=== PATIENT | female | born 1975 | race Caucasian/White ===

== ENCOUNTER 2016-12-04 00:23 | Emergency (ER) | payer SELFPAY ==
[2016-12-04 00:39] VITALS: TEMP 97.9; O2SAT 99
--- NOTE | 2016-12-04 01:07 | ED PDOC ---
Arrival/HPI - General Historian: Patient - General Chief Complaint: Abdominal Pain Time Seen by Provider: 12/04/16 00:35 - History of Present Illness Narrative History of Present Illness (Text): 12/04/16 02:21 41 year old female presenting with 2 day hx of abdominal pain and yellow/green discharge. Patient states she has been experiencing lower quadrant pain b/l for 2 days. The pain is intermittent and sharp in nature. The pain is worse with movement. She attempted to take Tylenol for the pain but it did not help. She states she was having a white discharge from her vagina for approximately one month, but two days ago it switched to a yellowish-green discharge. Patient states the discharge has a foul odor to it. Denies f/c, n/v, d/c, sob, cp, dizziness, lightheadedness or urinary symptoms. (Elsa,Sal) Past Medical History - Provider Review Nursing Documentation Reviewed: Yes - Psychiatric Hx Substance Use: No Family/Social History - Physician Review Nursing Documentation Reviewed: Yes Family/Social History: Unknown Family HX Smoking Status: Never Smoked Hx Alcohol Use: No Hx Substance Use: No Allergies/Home Meds Allergies/Adverse Reactions: Allergies No Known Allergies Allergy (Verified 12/04/16 00:35) Review of Systems - Physician Review All systems were reviewed & negative as marked: Yes - Review of Systems Constitutional: Normal Eyes: Normal. absent: Vision Changes, Photophobia ENT: Normal. absent: Sore Throat, Rhinorrhea, Epistaxis, Sinus Congestion Respiratory: Normal. absent: SOB, Cough, Wheezing Cardiovascular: Normal. absent: Chest Pain, Palpitations, Edema, Calf Pain Gastrointestinal: Abdominal Pain. absent: Diarrhea, Nausea, Vomiting, Appetite Changes Genitourinary Female: Vaginal Discharge (green, foul smelling discharge). absent: Dysuria, Frequency Musculoskeletal: Back Pain (low back pain radiating to sides b/l) Skin: absent: Rash, Pruritis, Skin Lesions Neurological: absent: Headache, Dizziness Endocrine: Normal. absent: Diaphoresis Hemo/Lymphatic: Normal Psychiatric: Normal. absent: Depression Physical Exam Vital Signs Reviewed: Yes Temperature: Afebrile Blood Pressure: Normal Pulse: Regular Respiratory Rate: Normal Appearance: Positive for: Well-Appearing, Non-Toxic, Comfortable Pain Distress: None Mental Status: Positive for: Alert and Oriented X 3 - Systems Exam Head: Present: Atraumatic, Normocephalic Extroacular Muscles: Present: EOMI Conjunctiva: Present: Normal Mouth: Present: Moist Mucous Membranes Pharnyx: Present: Normal Nose (External): Present: Atraumatic. No: Abrasion Nose (Internal): Present: Normal Inspection Neck: Present: Normal Range of Motion. No: Meningeal Signs, JVD Respiratory/Chest: Present: Clear to Auscultation, Good Air Exchange. No: Respiratory Distress, Accessory Muscle Use Cardiovascular: Present: Regular Rate and Rhythm, Normal S1, S2 Abdomen: Present: Tenderness, Normal Bowel Sounds. No: Distention, Peritoneal Signs, Rebound, McBurney's Point Tender, Rovsing's Sign Present Genitourinary/Pelvic Exam: Present: Vaginal Discharge (yellow/green discharge), Cervical Motion Tendernes, Cervical os Closed, Odor (foul smelling) Upper Extremity: Present: Normal Inspection, NORMAL PULSES. No: Edema Lower Extremity: Present: Normal Inspection, NORMAL PULSES. No: Edema Neurological: Present: GCS=15 Skin: Present: Warm, Dry, Normal Color. No: Diaphoretic Psychiatric: Present: Alert, Oriented x 3, Normal Insight, Normal Concentration Vital Signs Temp Pulse Resp BP Pulse Ox 12/04/16 02:44 68 17 125/80 99 12/04/16 00:23 97.9 F 71 16 124/79 99 Medical Decision Making ED Course and Treatment: Impression: Pt seen and evaluated with medical management specialist. Pt presented for intermittent abdominal pain for 2 days and yellow/greenish vaginal discharge for 1 month. Aware and agrees with HPI, clinincal findings, plan, and management. Plan: -- Urinalysis -- Rocephin -- Zithromax -- Reassess and disposition (Tony Hugo) 12/04/16 02:55 Pelvic pain - Trichomoniasis - Pelvic Exam -yellow/green discharge, foul odor. Cervical motion tenderness. - UA - wnl DISPO: Home. Prescription for Flagyl 375mg q12h x 7 days. Patient given referral to [facility] for follow-up. Please return to ED with new or worsening symptoms (Sal Hunter) - Lab Interpretations Lab Results: Lab Results 12/04/16 01:05: Urine Color Yellow, Urine Appearance Clear, Urine pH 8.0, Ur Specific [place] 1.010, Urine Protein Negative, Urine Glucose (UA) Negative, Urine Ketones Negative, Urine Blood Negative, Urine Nitrate Negative, Urine Bilirubin Negative, Urine Urobilinogen 0.2, Ur Leukocyte Esterase Negative - Medication Orders Current Medication Orders: Discontinued Medications Azithromycin (Zithromax) 1,000 mg PO STAT STA PRN Reason: Protocol Stop: 12/04/16 02:13 Last Admin: 12/04/16 02:40 Dose: 1,000 mg Ceftriaxone Sodium (Rocephin) 250 mg IM STAT STA PRN Reason: Protocol Stop: 12/04/16 02:12 Last Admin: 12/04/16 02:39 Dose: 250 mg Disposition/Present on Arrival - Present on Arrival Any Indicators Present on Arrival: No History of DVT/PE: No History of Uncontrolled Diabetes: No Urinary Catheter: No History of Decub. Ulcer: No History Surgical Site Infection Following: None - Disposition Have Diagnosis and Disposition been Completed?: Yes Disposition Time: 02:00 Patient Plan: Discharge - Disposition Diagnosis: Trichomoniasis of vagina Disposition: HOME/ ROUTINE Condition: GOOD Discharge Instructions (ExitCare): Trichomoniasis (ED) Prescriptions: Metronidazole [Flagyl 375] 375 mg PO Q12H #14 cap Referrals: [facility] [place] - Follow up with primary Forms: [employer] (Armenian)
[2016-12-04 01:37] LABS: URINE BILIRUBIN NEGATIVE (NEGATIVE); URINE BLOOD NEGATIVE (NEGATIVE); URINE GLUCOSE (UA) NEGATIVE (NEGATIVE); URINE KETONE NEGATIVE (NEGATIVE); URINE LEUKOCYTE ESTERASE NEGATIVE Leu/uL (NEGATIVE); URINE PROTEIN NEGATIVE mg/dL (<30 mg/dL); URINE UROBILINOGEN 0.2 E.U./dL (<1 E.U./dL)
[2016-12-04 01:39] LABS: URINE APPEARANCE CLEAR (CLEAR); URINE COLOR YELLOW (YELLOW)
[2016-12-04] MEDS ORDERED: cefTRIAXone (Rocephin) 250 mg Inj IM STA (02:11)
[2016-12-04 02:45] VITALS: BP 125/80; PULSE 68; RESP 17
== END 2016-12-04 02:45 | disposition home or self-care (01) ==
LOC: ED 00:23
DX: A59.01 Trichomonal vulvovaginitis (principal)
CPT/HCPCS: 81003; 96372; 99284; J0696

== ENCOUNTER 2017-05-24 02:25 | Emergency (ER) | payer MEDICAID ==
[2017-05-24 02:36] VITALS: BMI 27.3
[2017-05-24 02:38] VITALS: BP 101/56; RESP 20; TEMP 98; O2SAT 98
[2017-05-24 02:41] VITALS: PULSE 70
--- NOTE | 2017-05-24 03:03 | ED PDOC ---
Arrival/HPI - General Chief Complaint: Cough, Cold, Congestion Time Seen by Provider: 05/24/17 03:00 Historian: Patient - History of Present Illness Narrative History of Present Illness (Text): 05/24/17 03:02 Jammie Thomason is a 41 year old female, with no significant past medical history , who presents to the Emergency department complaining of productive cough with greenish sputum for 4 days. Patient denies any fever, chills, chest pain, shortness of breath, nausea, vomiting, diarrhea, urinary symptoms, back pain, neck pain, headache, dizziness, or any other complaints. Time/Duration: < week Symptom Onset: Gradual Symptom Course: Unchanged Activities at Onset: Light Context: Home Past Medical History - Provider Review Nursing Documentation Reviewed: Yes - Cardiac Hx Cardiac Disorders: No - Pulmonary Hx Respiratory Disorders: No - Neurological Hx Neurological Disorder: No - HEENT Hx HEENT Disorder: No - Renal Hx Renal Disorder: No - Endocrine/Metabolic Hx Endocrine Disorders: No - Hematological/Oncological Hx Blood Disorders: No - Integumentary Hx Dermatological Disorder: No - Musculoskeletal/Rheumatological Hx Musculoskeletal Disorders: No - Gastrointestinal Hx Gastrointestinal Disorders: No - Genitourinary/Gynecological Hx Genitourinary Disorders: No - Psychiatric Hx Psychophysiologic Disorder: No Hx Substance Use: No Family/Social History - Physician Review Nursing Documentation Reviewed: Yes Family/Social History: Unknown Family HX Smoking Status: Never Smoked Hx Alcohol Use: No Hx Substance Use: No Allergies/Home Meds Allergies/Adverse Reactions: Allergies morphine Allergy (Verified 05/24/17 02:36) DIZZINESS Review of Systems - Physician Review All systems were reviewed & negative as marked: Yes - Review of Systems Constitutional: Normal. absent: Fevers Eyes: Normal ENT: Normal Respiratory: Cough, Sputum. absent: SOB Cardiovascular: Normal. absent: Chest Pain Gastrointestinal: Normal. absent: Abdominal Pain, Diarrhea, Nausea, Vomiting Genitourinary Female: Normal Musculoskeletal: Normal Skin: Normal Neurological: Normal Endocrine: Normal Hemo/Lymphatic: Normal Psychiatric: Normal Physical Exam Vital Signs Reviewed: Yes Vital Signs Temp Pulse Resp BP Pulse Ox 05/24/17 02:38 98.0 F 70 20 101/56 L 98 05/24/17 02:37 98.0 F 76 20 101/56 L 98 Temperature: Afebrile Blood Pressure: Normal Pulse: Regular Respiratory Rate: Normal Appearance: Positive for: Well-Appearing, Non-Toxic, Comfortable Pain Distress: None Mental Status: Positive for: Alert and Oriented X 3 - Systems Exam Head: Present: Atraumatic, Normocephalic Pupils: Present: PERRL Extroacular Muscles: Present: EOMI Conjunctiva: Present: Normal Mouth: Present: Moist Mucous Membranes Neck: Present: Normal Range of Motion Respiratory/Chest: Present: Clear to Auscultation, Good Air Exchange. No: Respiratory Distress, Accessory Muscle Use Cardiovascular: Present: Regular Rate and Rhythm, Normal S1, S2. No: Murmurs Abdomen: Present: Normal Bowel Sounds. No: Tenderness, Distention, Peritoneal Signs Back: Present: Normal Inspection Upper Extremity: Present: Normal Inspection. No: Cyanosis, Edema Lower Extremity: Present: Normal Inspection. No: Edema Neurological: Present: GCS=15, CN II-XII Intact, Speech Normal Skin: Present: Warm, Dry, Normal Color. No: Rashes Psychiatric: Present: Alert, Oriented x 3, Normal Insight, Normal Concentration Medical Decision Making ED Course and Treatment: 05/24/17 03:03 Impression: 41 year old female complaining of productive cough with greenish sputum x4 days. Plan: -- Chest X-ray -- Rapid influenza -- Reassess and disposition Progress Notes: 05/24/17 03:39 Chest X-ray reviewed, shows no acute processes. 05/24/17 03:59 On re-evaluation, patient feels better and is in no acute distress. I have discussed the results and plan with the patient, who expresses understanding. Patient in agreement with plan to be discharged home. Patient is stable for discharge. Patient was instructed to follow up with physician or return if symptoms worsen or new concerning symptoms arise. - Lab Interpretations Lab Results: Lab Results 05/24/17 03:14: Influenza Typ A,B (EIA) Negative for flu a/b I have reviewed the lab results: Yes - RAD Interpretation Radiology Orders: 05/24/17 03:02 CHEST TWO VIEWS (PA/LAT) [RAD] [employer] Instructor: ED Physician - Medication Orders Current Medication Orders: Azithromycin (Zithromax) 500 mg PO ONCE STA PRN Reason: Protocol Stop: 05/24/17 03:59 - Scribe Statement The provider has reviewed the documentation as recorded by the Scribe Mary Vieyra All medical record entries made by the Scribe were at my direction and personally dictated by me. I have reviewed the chart and agree that the record accurately reflects my personal performance of the history, physical exam, medical decision making, and the department course for this patient. I have also personally directed, reviewed, and agree with the discharge instructions and disposition. Disposition/Present on Arrival - Present on Arrival Any Indicators Present on Arrival: No History of DVT/PE: No History of Uncontrolled Diabetes: No Urinary Catheter: No History of Decub. Ulcer: No History Surgical Site Infection Following: None - Disposition Have Diagnosis and Disposition been Completed?: Yes Diagnosis: Bronchitis Disposition: HOME/ ROUTINE Disposition Time: 03:59 Patient Plan: Discharge Patient Problems: Current Active Problems Problem Status Onset Bronchitis Acute Condition: GOOD Discharge Instructions (ExitCare): Acute Bronchitis Additional Instructions: Take meds as prescribed/follow up with your doctor this week Prescriptions: Benzonatate [Tessalon Perles] 100 mg PO TID PRN #21 sgl PRN Reason: Cough Azithromycin [Zithromax] 250 mg PO DAILY #4 tab Forms: [employer] (German)
--- NOTE | 2017-05-24 10:13 | RAD ---
HISTORY: cough COMPARISON: No prior. TECHNIQUE: Chest PA and lateral FINDINGS: LUNGS: No active pulmonary disease. PLEURA: No significant pleural effusion identified. No pneumothorax apparent. CARDIOVASCULAR: Normal. OSSEOUS STRUCTURES: No significant abnormalities. VISUALIZED UPPER ABDOMEN: Normal. OTHER FINDINGS: None. IMPRESSION: No active disease.
== END 2017-05-24 04:10 | disposition home or self-care (01) ==
LOC: ED 02:25
DX: J20.9 Acute bronchitis, unspecified (principal)

== ENCOUNTER 2018-01-04 22:18 | Emergency (ER) | payer MEDICAID ==
[2018-01-04 22:19] VITALS: BMI 27.3
[2018-01-05] MEDS ORDERED: Sodium Chloride 0.9% 1,000 ML IV STA (00:12)
--- NOTE | 2018-01-05 00:21 | ED PDOC ---
Arrival/HPI - General Chief Complaint: Abdominal Pain Time Seen by Provider: 01/04/18 22:22 Historian: Patient - History of Present Illness Narrative History of Present Illness (Text): 01/05/18 00:18 42 year old female, with no significant past medical history, presents to the Emergency department with lower abdominal pain since one week. Patient states she has bee having more frequent urination during this week. Patient also informs of associated abdominal pain. Patient states pain radiates to her right flank. Patient informs she was seen by her PMD for this and given antibiotics (bactrim), Patient denies any fevers, chills, headache, dizziness, chest pain, shortness of breath, cough, nausea, vomiting, diarrhea, neck pain, or any other complaint. 01/05/18 03:38 Time/Duration: 1 week Symptom Onset: Gradual Symptom Course: Unchanged Past Medical History - Provider Review Nursing Documentation Reviewed: Yes - Infectious Disease Hx of Infectious Diseases: None - Cardiac Hx Cardiac Disorders: No - Pulmonary Hx Respiratory Disorders: No - Neurological Hx Neurological Disorder: No - HEENT Hx HEENT Disorder: No - Renal Hx Renal Disorder: No - Endocrine/Metabolic Hx Endocrine Disorders: No - Hematological/Oncological Hx Blood Disorders: No - Integumentary Hx Dermatological Disorder: No - Musculoskeletal/Rheumatological Hx Musculoskeletal Disorders: No - Gastrointestinal Hx Gastrointestinal Disorders: No - Genitourinary/Gynecological Hx Genitourinary Disorders: No - Psychiatric Hx Psychophysiologic Disorder: No Hx Substance Use: No - Anesthesia Hx Anesthesia: No Family/Social History - Physician Review Nursing Documentation Reviewed: Yes Family/Social History: No Known Family HX Smoking Status: Never Smoked Hx Alcohol Use: No Hx Substance Use: No Allergies/Home Meds Allergies/Adverse Reactions: Allergies morphine Allergy (Verified 01/05/18 00:14) DIZZINESS Home Medications: Home Meds Medication Instructions Recorded Confirmed RX: No Known Home Med 01/05/18 01/05/18 Review of Systems - Physician Review All systems were reviewed & negative as marked: Yes - Review of Systems Constitutional: absent: Fevers, Night Sweats Respiratory: absent: SOB, Cough Cardiovascular: absent: Chest Pain Gastrointestinal: Abdominal Pain (Lower abdomen and right flank). absent: Diarrhea, Nausea, Vomiting Genitourinary Female: Urine Output Changes (more frequent urination) Neurological: absent: Headache, Dizziness Physical Exam Vital Signs Reviewed: Yes Vital Signs Temp Pulse Resp BP Pulse Ox 01/05/18 00:14 97.9 F 81 18 121/61 98 Temperature: Afebrile Blood Pressure: Normal Pulse: Regular Respiratory Rate: Normal Appearance: Positive for: Well-Appearing, Non-Toxic, Comfortable Pain Distress: None Mental Status: Positive for: Alert and Oriented X 3 - Systems Exam Head: Present: Atraumatic, Normocephalic Pupils: Present: PERRL Extroacular Muscles: Present: EOMI Conjunctiva: Present: Normal Mouth: Present: Moist Mucous Membranes Neck: Present: Normal Range of Motion Respiratory/Chest: Present: Clear to Auscultation, Good Air Exchange. No: Respiratory Distress, Accessory Muscle Use Cardiovascular: Present: Regular Rate and Rhythm, Normal S1, S2. No: Murmurs Abdomen: Present: Tenderness (Right flank tenderness) Back: Present: Normal Inspection Upper Extremity: Present: Normal Inspection. No: Cyanosis, Edema Lower Extremity: Present: Normal Inspection. No: Edema Neurological: Present: GCS=15, CN II-XII Intact, Speech Normal Skin: Present: Warm, Dry, Normal Color. No: Rashes Psychiatric: Present: Alert, Oriented x 3, Normal Insight, Normal Concentration Medical Decision Making ED Course and Treatment: 01/05/18 00:23 Impression: 42 year old female presents with lower abdominal and right flank pain. ro uti pyelo renal stone Plan: -- Labs -- Tylenol -- Urinalysis -- Reassess and disposition Prior Visits: Notes and results from previous visits were reviewed. Progress Notes: 01/05/18 03:41 Patient reassessed and is comfortable. Urine does not show any evidence of infection at this time. Mild nonspecific leukocytosis, cultures have been sent. Patient is asking for discharge and states she will follow up with her PMD tomorrow. 01/09/18 07:21 - Medication Orders Current Medication Orders: Sodium Chloride (Sodium Chloride 0.9%) 1,000 mls @ 999 mls/hr IV .Q1H1M STA Stop: 01/05/18 01:12 Discontinued Medications Acetaminophen (Tylenol 325mg Tab) 975 mg PO STAT STA Stop: 01/05/18 00:13 - Scribe Statement The provider has reviewed the documentation as recorded by the Yuriy Magallanes Provider Scribe Attestation: All medical record entries made by the Scribe were at my direction and personally dictated by me. I have reviewed the chart and agree that the record accurately reflects my personal performance of the history, physical exam, medical decision making, and the department course for this patient. I have also personally directed, reviewed, and agree with the discharge instructions and disposition. Disposition/Present on Arrival - Present on Arrival Any Indicators Present on Arrival: No History of DVT/PE: No History of Uncontrolled Diabetes: No Urinary Catheter: No History of Decub. Ulcer: No History Surgical Site Infection Following: None - Disposition Have Diagnosis and Disposition been Completed?: Yes Diagnosis: Abdominal pain, Leukocytosis Disposition: HOME/ ROUTINE Disposition Time: 03:39 Condition: STABLE Discharge Instructions (ExitCare): Acute Abdomen (Belly Pain), White Blood Cell Count Differential Test Additional Instructions: follow up with your doctor/clinic. return to any er with worsening symptoms or concerns. please discuss all lab tests and ct scan with your doctor. you may need repeat testing and work up. Referrals: Maggie Tucker MD [Primary Care Provider] - Follow up with primary Jovanny Najera MD [Staff Provider] - Follow up with primary [facility] [Outside] - Follow up with primary [facility] at [facility] [place] [Outside] - Follow up with primary [facility] [Outside] - Follow up with primary Forms: [employer] (Malawian)
[2018-01-05 00:58] LABS: BASO # 0.02 K/mm3 (0.0-2.0); BASO % 0.2 % (0.0-3.0); EOS # 0.2 (0.0-0.7); EOS % 1.2 % (1.5-5.0); GRAN # 7.79 (1.4-6.5); GRAN % 59.6 % (50.0-68.0); HEMOGLOBIN 11.3 g/dL (12.0-16.0); LYMPH # 4.3 (1.2-3.4); LYMPH % 32.7 % (22.0-35.0); MEAN CORPUSCULAR HGB CONC 32.6 g/dl (31.0-37.0); MEAN PLATELET VOLUME 11.2 fl (7.0-11.0); MONO # 0.8 (0.1-0.6); MONO % 6.3 % (1.0-6.0); RBC 4.34 10^6/uL (3.5-6.1); RED CELL DISTRIBUTION WIDTH 13.5 % (11.5-14.5)
[2018-01-05 00:59] LABS: URINE BILIRUBIN NEGATIVE (NEGATIVE); URINE BLOOD NEGATIVE (NEGATIVE); URINE GLUCOSE (UA) NEGATIVE (NEGATIVE); URINE LEUKOCYTE ESTERASE SMALL Leu/uL (NEGATIVE); URINE PROTEIN NEGATIVE mg/dL (<30 mg/dL); URINE UROBILINOGEN 0.2 E.U./dL (<1 E.U./dL)
[2018-01-05 01:05] LABS: ALB/GLOB RATIO 1.3 (1.1-1.8); ALBUMIN 4.1 g/dL (3.0-4.8); ALT/SGPT 19 U/L (7-56); AST/SGOT 22 U/L (14-36); BLOOD UREA NITROGEN 15 mg/dL (7-21); CALCIUM 9.5 mg/dL (8.4-10.5); GFR NON-AFRICAN AMERICAN > 60; LIPASE 92 U/L (23-300)
[2018-01-05 01:09] LABS: HCG,QUALITATIVE URINE NEGATIVE (NEGATIVE); URINE APPEARANCE CLEAR (CLEAR); URINE COLOR YELLOW (YELLOW)
[2018-01-05 01:33] LABS: URINE BACTERIA SMALL (NEG); URINE RBC 0 - 2 /hpf (0-2)
[2018-01-05 01:36] LABS: INR 0.97; PARTIAL THROMBOPLASTIN TIME 29.7 Seconds (25.1-36.5); PROTHROMBIN TIME 11.1 SECONDS (9.4-12.5)
[2018-01-05 03:47] VITALS: RESP 17
[2018-01-05 03:48] VITALS: BP 119/63; PULSE 73; TEMP 98.4; O2SAT 97
--- NOTE | 2018-01-05 08:54 | CT ---
PROCEDURE: CT Abdomen and Pelvis without Oral or IV contrast. HISTORY: right flank pain COMPARISON: CT abdomen and pelvis performed without IV contrast 05/16/17 TECHNIQUE: Contiguous axial images of the abdomen and pelvis. No oral or IV contrast administered. Coronal and Sagittal reformats generated and reviewed. Radiation dose: Total exam DLP = 489.77 mGy-cm. This CT exam was performed using one or more of the following dose reduction techniques: Automated exposure control, adjustment of the mA and/or kV according to patient size, and/or use of iterative reconstruction technique. FINDINGS: There is limited evaluation of the solid organs without the administration of IV contrast. LOWER THORAX: No visible consolidation, pleural effusion, or pneumothorax. LIVER: Unremarkable. GALLBLADDER AND BILE DUCTS: Unremarkable. PANCREAS: Unremarkable. SPLEEN: Unremarkable. ADRENALS: Unremarkable. KIDNEYS AND URETERS: No hydronephrosis or obstructing renal calculus. BLADDER: Under distended urinary bladder appears mildly thick-walled. REPRODUCTIVE: Uterus is present. APPENDIX: The appendix appears within normal limits of caliber. No secondary signs of acute appendicitis. BOWEL: The stomach is nondistended. Lack of oral contrast limits evaluation for bowel pathology. The bowel loops appear within normal limits of caliber without evidence of intestinal obstruction. Diverticulosis without CT evidence of acute diverticulitis. Moderate diffuse constipation. PERITONEUM: Small pelvic free fluid. No definite free air. LYMPH NODES: No bulky lymphadenopathy identified. VASCULATURE: No aortic aneurysm. BONES: No acute osseous abnormality is detected. OTHER FINDINGS: None. IMPRESSION: Moderate constipation. Mildly thick-walled urinary bladder may be exaggerated by under distension. Small pelvic free fluid. Preliminary impression was provided by [employer]
== END 2018-01-05 03:51 | disposition home or self-care (01) ==
LOC: ED 22:18
DX: D72.829 Elevated white blood cell count, unspecified (principal); R10.9 Unspecified abdominal pain
CPT/HCPCS: 74176; 80053; 81001; 83690; 84703; 85025; 85610; 85730; 87086; 96360; 99283; J7030

== ENCOUNTER 2018-04-07 08:27 | Emergency (ER) | payer MEDICAID ==
[2018-04-07 08:27] VITALS: BMI 27.3
[2018-04-07 08:37] VITALS: BP 111/76; PULSE 71; RESP 18; TEMP 98.2; O2SAT 99
--- NOTE | 2018-04-07 09:09 | ED PDOC ---
Arrival/HPI <Chantell Ugalde - Last Filed: 04/07/18 09:33> - General Historian: Patient - History of Present Illness Narrative History of Present Illness (Text): 04/07/18 09:04 42 y/o F with no significant PMHx presents to ED with complaints of sore throat, throat swelling, cough, congestion with associated bodyaches since yesterday morning that hasn't been alleviated with tylenol, not aggravated with anything particular. She has not received flu shot this year. She denies difficult breathing, or shortness of breath. She denies fevers, chills, headache, dizziness, chest pain, palpitations, SOB, n/v/c/d. PMD: Dr. Telly Cerrato- [facility] Time/Duration: Prior to Arrival Symptom Onset: Gradual Severity Level: Mild <Hank Howe - Last Filed: 04/07/18 10:12> - General Chief Complaint: ENT Problem Time Seen by Provider: 04/07/18 08:49 Past Medical History - Provider Review Nursing Documentation Reviewed: Yes - Infectious Disease Hx of Infectious Diseases: None - Cardiac Hx Cardiac Disorders: No - Pulmonary Hx Respiratory Disorders: No - Neurological Hx Neurological Disorder: No - HEENT Hx HEENT Disorder: No - Renal Hx Renal Disorder: No - Endocrine/Metabolic Hx Endocrine Disorders: No - Hematological/Oncological Hx Blood Disorders: No - Integumentary Hx Dermatological Disorder: No - Musculoskeletal/Rheumatological Hx Musculoskeletal Disorders: No - Gastrointestinal Hx Gastrointestinal Disorders: No - Genitourinary/Gynecological Hx Genitourinary Disorders: No - Psychiatric Hx Psychophysiologic Disorder: No Hx Substance Use: No - Anesthesia Hx Anesthesia: No <Hank Howe - Last Filed: 04/07/18 10:12> Family/Social History - Physician Review Nursing Documentation Reviewed: Yes Family/Social History: Unknown Family HX Smoking Status: Never Smoked Hx Alcohol Use: No Hx Substance Use: No <Hank Howe - Last Filed: 04/07/18 10:12> Allergies/Home Meds <Chantell Ugalde - Last Filed: 04/07/18 09:33> <Hank Howe - Last Filed: 04/07/18 10:12> Allergies/Adverse Reactions: Allergies morphine Allergy (Verified 04/07/18 08:36) DIZZINESS Review of Systems - Review of Systems Constitutional: Normal. absent: Fevers Eyes: Normal ENT: Rhinorrhea, Sinus Congestion Respiratory: Cough. absent: SOB, Sputum, Wheezing Cardiovascular: Normal. absent: Chest Pain, Palpitations Gastrointestinal: Normal. absent: Abdominal Pain, Stool Changes Genitourinary Female: Normal. absent: Dysuria Musculoskeletal: Other (body aches) Skin: Normal. absent: Rash Neurological: Normal. absent: Headache, Dizziness Endocrine: Normal. absent: Diaphoresis Hemo/Lymphatic: Normal. absent: Adenopathy Psychiatric: Normal <Hank Howe - Last Filed: 04/07/18 10:12> Physical Exam Vital Signs Temp Pulse Resp BP Pulse Ox 04/07/18 08:35 98.2 F 71 18 111/76 99 <Ugalde,Chantell - Last Filed: 04/07/18 09:33> Vital Signs Reviewed: Yes Vital Signs Temp Pulse Resp BP Pulse Ox 04/07/18 08:35 98.2 F 71 18 111/76 99 Temperature: Afebrile Blood Pressure: Normal Pulse: Regular Respiratory Rate: Normal Appearance: Positive for: Well-Appearing, Non-Toxic, Comfortable Pain Distress: None Mental Status: Positive for: Alert and Oriented X 3 - Systems Exam Head: Present: Atraumatic, Normocephalic Pupils: Present: PERRL Extroacular Muscles: Present: EOMI Conjunctiva: Present: Normal. No: Injected Ears: Present: NORMAL TM Mouth: Present: Moist Mucous Membranes. No: Drooling Pharnyx: Present: Normal. No: ERYTHEMA, EXUDATE Nose (External): Present: Other (boggy turbinates) Neck: Present: Normal Range of Motion Respiratory/Chest: Present: Clear to Auscultation, Good Air Exchange. No: Respiratory Distress, Accessory Muscle Use Cardiovascular: Present: Regular Rate and Rhythm, Normal S1, S2. No: Murmurs Abdomen: No: Tenderness, Distention, Peritoneal Signs Back: Present: Normal Inspection Upper Extremity: Present: Normal Inspection. No: Cyanosis, Edema Lower Extremity: Present: Normal Inspection. No: Edema Neurological: Present: GCS=15, CN II-XII Intact, Speech Normal Skin: Present: Warm, Dry, Normal Color. No: Rashes Psychiatric: Present: Alert, Oriented x 3, Normal Insight, Normal Concentration <Hank Howe Last Filed: 04/07/18 10:12> Medical Decision Making ED Course and Treatment: 04/07/18 09:13 Impression: 42 year old female presents to emergency department complaining of sore throat, throat swelling, cough, and congestion with associated myalgias since yesterday morning. In agreement with resident note which contains more details about the patient. Patient seen and evaluated with resident. Came up with plan and treatment together. Plan: Rapid Strep <Chantell Ugalde - Last Filed: 04/07/18 09:33> ED Course and Treatment: 04/07/18 09:12 Impression: 42 y/o F with no significant PMHx presents to ED with cough, congestion, throat swelling and body aches since yesterday morning Prior notes and results have been reviewed Differential diagnosis includes but is not limited to: Influenza Plan: Tamiflu Rapid strep Progress Notes: <Hank Howe - Last Filed: 04/07/18 10:12> - PA / ROD BUSTER / Resident Statement HEIDY has reviewed & agrees with the documentation as recorded. - Scribe Statement The provider has reviewed the documentation as recorded by the Scribe Grabiel Lora All medical record entries made by the Scribe were at my direction and personally dictated by me. I have reviewed the chart and agree that the record accurately reflects my personal performance of the history, physical exam, medical decision making, and the department course for this patient. I have also personally directed, reviewed, and agree with the discharge instructions and disposition. <Chantell Ugalde - Last Filed: 04/07/18 09:33> - PA / ROD BUSTER / Resident Statement HEIDY has reviewed & agrees with the documentation as recorded. HEIDY has examined the patient and agrees with the treatment plan. <Hank Howe - Last Filed: 04/07/18 10:12> Disposition/Present on Arrival <Chantell Ugalde - Last Filed: 04/07/18 09:33> - Present on Arrival Any Indicators Present on Arrival: No History of DVT/PE: No History of Uncontrolled Diabetes: No Urinary Catheter: No History of Decub. Ulcer: No History Surgical Site Infection Following: None - Disposition Have Diagnosis and Disposition been Completed?: Yes Disposition Time: 10:05 <Hank Howe - Last Filed: 04/07/18 10:12> - Disposition Diagnosis: Pharyngitis, Influenza-like illness Disposition: HOME/ ROUTINE Patient Problems: Current Active Problems Problem Status Onset Influenza-like illness Acute Pharyngitis Acute Condition: GOOD Discharge Instructions (ExitCare): Viral Pharyngitis (DC) Additional Instructions: Please follow up with your primary care physician, Dr. Telly Cerrato, within 1 week of your visit to the ER You have been given Tamiflu for influenza-like illness. Please take this medication as directed. Please return to the nearest ER if your symptoms return or worsen. Prescriptions: Oseltamivir Phosphate [Tamiflu] 75 mg PO BID 5 Days #10 capsule Forms: [employer] (Amharic)
== END 2018-04-07 10:18 | disposition home or self-care (01) ==
LOC: ED 08:27
DX: J11.1 Influenza due to unidentified influenza virus with other respiratory manifestations (principal); J02.9 Acute pharyngitis, unspecified